=== PATIENT | female | born 1945 | race Two or more races ===

== ENCOUNTER 2024-02-17 12:04 | Emergency (ER) | payer OTHER ==
[~2024-02-17] VITALS: Ht 157.5 cm; Wt 69.7 kg
--- NOTE | 2024-02-17 14:25 | ED.PDOC ---
Musculoskeletal HPI Comments Presents for atraumatic Left knee pain Started 2 days ago waking out of [employer] and pain has been present since Worsens with ambulation Able to bear weight on the leg Denies trauma to the knee or recent fall Denies skin color changes around the knee Denies masses around the knee Denies popping/locking/giving out of the knee Denies fever chills night sweats nausea vomiting Denies previous surgeries to the knee nor significant injury Chief Complaint: Lower Extremity Time Seen by MD: 12:46 Reviewed Notes: Nurses Notes, Medications, Allergies Allergies: Coded Allergies: NO KNOWN ALLERGIES (Unverified , 02/17/24) Home Meds Active Scripts Cyclobenzaprine Hcl (Cyclobenzaprine Hcl) 5 Mg Tab, 1 TAB PO QPM for 30 Days, #30 TAB 0 Refills Prov:VARSHA EISENBERG NP 02/17/24 Lidocaine (Anorectal) (Lidocaine 5%) 5 % Cre, 5 % EX TID for 30 Days, #30 CRE 0 Refills Prov:VARSHA EISENBERG NP 02/17/24 Methylprednisolone (Medrol Dosepak) 4 Mg Daniel, 4 MG PO UD, #21 TAB 0 Refills UAD Prov:VARSHA EISENBERG NP 02/17/24 Meloxicam (Meloxicam) 15 Mg Tab, 1 TAB PO DAILY for 30 Days, #30 TAB 0 Refills Prov:VARSHA EISENBERG NP 02/17/24 Information Source: Patient Mode of Arrival: Ambulatory Past Medical History PAST MEDICAL HISTORY: Denies Surgical History: Denies all surgeries [employer] History: No Pertinent [employer] History Family History Family History: Reviewed,noncontributory to illness, No family hx of Cancer, No family hx of DM, No family hx of Heart nini, No family hx of HTN, No family hx ofKidney nini, No family hx of Liver nini, No family hx of Lung nini, No family hx of Stroke Social History Smoker: Non-Smoker Alcohol: Denies ETOH Use Drugs: Denies Drug Use Lives In: Home All Other Systems: Reviewed and Negative (Per HPI) Physical Exam General Appearance: No Apparent Distress, Normal HEENT: Normal ENT Inspection, Pharynx Normal, TMs Normal Neck: Full Range of Motion, Non-Tender, Normal, Normal Inspection Respiratory: Chest Non-Tender, Lungs Clear, No Accessory Muscle Use, No Respiratory Distress, Normal Breath Sounds Cardiovascular: No Edema, No JVD, No Murmur, No Gallop, Normal Peripheral Pulses, Regular Rate/Rhythm Breast Exam: Deferred Gastrointestinal: No Organomegaly, Non Tender, No Pulsatile Mass, Normal Bowel Sounds, Soft Genitalia: Deferred Pelvic: Deferred Rectal: Deferred Extremities: No calf tenderness, Normal capillary refill, Normal inspection, Normal range of motion, Non-tender, No pedal edema Musculoskeletal : Location: Left Extremity Location: Knee (Normal on inspection) Apperance: Normal Neurologic: Alert, 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 Was a procedure done?: No Differential Diagnosis EXT Differential Diagnosis: Fracture, Sprain, Dislocation X-Ray, Labs, Meds, VS Vital Signs Date Time Temp Pulse Resp B/P (MAP) Pulse Ox O2 Delivery O2 Flow Rate FiO2 02/17/24 15:48 89 18 96 Room Air 02/17/24 15:48 98.0 89 18 150/64 (92) 96 98.0 02/17/24 12:41 97.6 67 18 156/53 (87) 95 X-Ray, Labs, Meds, VS Comment Prescribed NSAIDs for the management of acute knee pain. Recommend light walking under the sun for 30 minutes a day Avoiding running jogging high-impact activities Stretch as tolerated Ice 3x/day for 5 minutes Wear knee brace for stability as needed, elevate leg swelling aggravated Patient is stable for discharge at this time. External notes reviewed. Test results and diagnostic imaging interpreted. All diagnostic findings, discharge care, education and instructions provided Follow-up with PCP in 2 to 3 days Patient verbalized understanding and agreed to treatment plan Vital signs stable, afebrile, no acute distress noted Patient ambulatory with strong steady gait Advised to return precautions for any new or worsening symptoms, return to ER i mmediately for re-evaluation Patient is aware that the purpose of this visit was for an acute medical emergency requiring emergent stabilization. Chronic conditions, including malignancies have not been ruled out. Patient is instructed to follow up with PCP as directed and discharge instructions for continued care and workup. If unable to arrange follow-up, patient is to return to the emergency department for reassessment. Patient (parent or legal guardian if applicable) was given verbal and written discharge instructions and acknowledges understanding. Time of 1ST Reevaluation: 13:30 Reevaluation 1ST: Improved Patient Education/Counseling: Diagnosis, Treatment Family Education/Counseling: Diagnosis, Treatment Departure 1 Departure Time of Disposition: 15:37 Impression: Primary Impression: Left knee pain Qualified Codes: M25.562 - Pain in left knee Disposition: 01 HOME / SELF CARE / HOMELESS Condition: Fair e-Prescriptions Cyclobenzaprine Hcl (Cyclobenzaprine Hcl) 5 Mg Tab 1 TAB PO QPM for 30 Days, #30 TAB 0 Refills Prov: VARSHA EISENBERG NP 02/17/24 Lidocaine (Anorectal) (Lidocaine 5%) 5 % Cre 5 % EX TID for 30 Days, #30 CRE 0 Refills Prov: VARSHA EISENBERG NP 02/17/24 Methylprednisolone (Medrol Dosepak) 4 Mg Daniel 4 MG PO UD, #21 TAB 0 Refills UAD Prov: VARSHA EISENBERG NP 02/17/24 Meloxicam (Meloxicam) 15 Mg Tab 1 TAB PO DAILY for 30 Days, #30 TAB 0 Refills Prov: VARSHA EISENBERG NP 02/17/24 Critical Care Note Critical Care Time?: No Stability Stability form required: No Heart Score Heart Score: Heart Score Response (Comments) Value History N/A 0 EKG N/A 0 Age N/A 0 Risk Factors N/A 0 Troponin N/A 0 Total 0 VARSHA EISENBERG NP Feb 17, 2024 14:25
--- NOTE | 2024-02-17 15:28 | DVH ---
CLINICAL INDICATION: Arthritis TECHNIQUE: XY L KNEE 3V XRAY Comparison: None FINDINGS/IMPRESSION: : There is no evidence of acute fracture or dislocation. Small suprapatellar joint effusion. Well corticated ossific density at the medial femoral condyle may be related to chronic prior trauma or degenerative change.
[2024-02-17] MEDS ORDERED: MELO15TA29 PO (15:39)
[2024-02-17] MEDS ORDERED: CYCL-837 PO (15:39)
[2024-02-17] MEDS ORDERED: LIDO5CRE14 EX (15:39)
[2024-02-17] MEDS ORDERED: METH4PAK PO (15:39)
[2024-02-17 15:48] VITALS: BP 150/64; PULSE 89; RESP 18; TEMP 98; O2SAT 96
== END 2024-02-17 15:57 | disposition home or self-care (01) ==
LOC: ER 12:04
DX: M25.562 Pain in left knee (principal); Z79.899 Other long term (current) drug therapy
CPT/HCPCS: 73562